=== PATIENT | male | born 1980 | race Hispanic/Latino ===

== ENCOUNTER 2018-06-14 07:57 | Emergency (ER) | payer BC, OTHER ==
--- NOTE | 2018-06-14 08:57 | EDPHYS ---
Physician Documentation [facility] Name: Stanton Appiah Jr Age: 37 yrs Sex: Male : 1980 Arrival Date: 06/14/2018 Time: 08:00 Bed DIS4 Private MD: ED Physician Ricky Hanson HPI: 06/14 08:55 This 37 yrs old Male presents to ER via Ambulatory with complaints of Flu kb Symptoms. 08:55 The patient or guardian reports cough, that is intermittent, described as mild, with no kb sputum, flu symptoms, low-grade fever, myalgias. Onset: The symptoms/episode began/occurred yesterday. Severity of symptoms: At their worst the symptoms were mild, moderate, in the emergency department the symptoms are unchanged. Modifying factors: The symptoms are alleviated by nothing, the symptoms are aggravated by nothing. Associated signs and symptoms: Pertinent positives: rhinorrhea, sore throat, Pertinent negatives: chest pain, diarrhea, ear ache, fever, nausea, vomiting. The patient has not experienced similar symptoms in the past. The patient has not recently seen a physician. Historical: - Allergies: 08:05 No Known Allergies; rb1 - Home Meds: 08:05 None [Active]; rb1 - PMHx: 08:05 None; rb1 - PSHx: 08:05 None; rb1 - Immunization history:: Adult Immunizations up to date. - Ebola Screening: : Patient negative for fever greater than or equal to 101.5 degrees Fahrenheit, and additional compatible Ebola Virus Disease symptoms. - Social history:: Smoking status: Patient uses tobacco products, denies chronic smoking, but will smoke occasionally. ROS: 08:54 Neck: Negative for injury, pain, and swelling, Cardiovascular: Negative for chest pain, kb palpitations, and edema, Abdomen/GI: Negative for abdominal pain, nausea, vomiting, diarrhea, and constipation, Back: Negative for injury and pain, MS/Extremity: Negative for injury and deformity, Skin: Negative for injury, rash, and discoloration, Neuro: Negative for headache, weakness, numbness, tingling, and seizure. 08:54 Constitutional: Positive for body aches, chills, fatigue, malaise, Negative for fever, poor PO intake, weight loss. 08:54 ENT: Positive for rhinorrhea, sore throat. 08:54 Respiratory: Positive for cough, Negative for dyspnea on exertion, hemoptysis, orthopnea, pleurisy, shortness of breath, sputum production, wheezing. Exam: 08:54 Constitutional: This is a well developed, well nourished patient who is awake, alert, kb and in no acute distress. Head/Face: Normocephalic, atraumatic. ENT: Nares patent. No nasal discharge, no septal abnormalities noted. Tympanic membranes are normal and external auditory canals are clear. Oropharynx with no redness, swelling, or masses, exudates, or evidence of obstruction, uvula midline. Mucous membranes moist. Neck: Trachea midline, no thyromegaly or masses palpated, and no cervical lymphadenopathy. Supple, full range of motion without nuchal rigidity, or vertebral point tenderness. No Meningismus. Chest/axilla: Normal chest wall appearance and motion. Nontender with no deformity. No lesions are appreciated. Cardiovascular: Regular rate and rhythm with a normal S1 and S2. No gallops, murmurs, or rubs. Normal PMI, no JVD. No pulse deficits. Respiratory: Lungs have equal breath sounds bilaterally, clear to auscultation and percussion. No rales, rhonchi or wheezes noted. No increased work of breathing, no retractions or nasal flaring. Abdomen/GI: Soft, non-tender, with normal bowel sounds. No distension or tympany. No guarding or rebound. No evidence of tenderness throughout. Skin: Warm, dry with normal turgor. Normal color with no rashes, no lesions, and no evidence of cellulitis. MS/ Extremity: Pulses equal, no cyanosis. Neurovascular intact. Full, normal range of motion. Neuro: Awake and alert, GCS 15, oriented to person, place, time, and situation. Cranial nerves II-XII grossly intact. Motor strength 5/5 in all extremities. Sensory grossly intact. Cerebellar exam normal. Normal gait. Vital Signs: 08:05 BP 159 / 101; Pulse 83; Resp 17; Temp 98.1(O); Pulse Ox 97% on R/A; Weight 74.84 kg rb1 (R); Height 5 ft. 8 in. (172.72 cm) (R); Pain 0/10; 09:00 BP 157 / 93; Pulse 84; Resp 18; Pulse Ox 99% on R/A; rb1 08:05 Body Mass Index 25.09 (74.84 kg, 172.72 cm) rb1 MDM: 08:09 Patient medically screened. kb 08:54 Data reviewed: vital signs, nurses notes. Data interpreted: Pulse oximetry: on room air kb is 97 %. Interpretation: normal. Counseling: I had a detailed discussion with the patient and/or guardian regarding: the historical points, exam findings, and any diagnostic results supporting the discharge/admit diagnosis, lab results, the need for outpatient follow up, a family practitioner, to return to the emergency department if symptoms worsen or persist or if there are any questions or concerns that arise at home. 06/14 08:10 Order name: Flu; Complete Time: 08:52 kb 06/14 08:10 Order name: Strep; Complete Time: 08:52 kb 06/14 08:51 Order name: Throat Culture EDMS Administered Medications: No medications were administered Disposition: 10:31 Co-signature as Attending Physician, Ricky Hanson MD I agree with the assessment and kdr plan of care. Disposition: 06/14/18 08:56 Discharged to Home. Impression: Acute upper respiratory infection, unspecified. - Condition is Stable. - Discharge Instructions: Upper Respiratory Infection, Adult, [id number], Viral Respiratory Infection, [id number]. - Medication Reconciliation Form, Thank You Letter, Antibiotic Education, Prescription Opioid Use form. - Follow up: Emergency Department; When: As needed; Reason: Worsening of condition. Follow up: Private Physician; When: 2 - 3 days; Reason: Recheck today's complaints, Continuance of care, Re-evaluation by your physician. Signatures: Dispatcher [employer] EDMS Awa Hardin, AIMEE-C AIMEE-Kriss Andersen, SUKHDEV RN dm5 Ricky Hanson MD MD [facility] Michelle Richard, RN RN rb1 Corrections: (The following items were deleted from the chart) 09:09 08:56 06/14/2018 08:56 Discharged to Home. Impression: Acute upper respiratory dm5 infection, unspecified. Condition is Stable. Forms are Medication Reconciliation Form, Thank You Letter, Antibiotic Education, Prescription Opioid Use. Follow up: Emergency Department; When: As needed; Reason: Worsening of condition. Follow up: Private Physician; When: 2 - 3 days; Reason: Recheck today's complaints, Continuance of care, Re-evaluation by your physician. kb
--- NOTE | 2018-06-14 08:57 | ER ---
Nurse's Notes [facility] Name: Stanton Appiah Jr Age: 37 yrs Sex: Male : 1980 Arrival Date: 06/14/2018 Time: 08:00 Bed DIS4 Private MD: Diagnosis: Acute upper respiratory infection, unspecified Presentation: 06/14 08:05 Presenting complaint: Patient states: Reports cough, headache, congestion, and fever x rb1 one day. Transition of care: patient was not received from another setting of care. Onset of symptoms was June 13, 2018. Risk Assessment: Do you want to hurt yourself or someone else? Patient reports no desire to harm self or others. Initial Sepsis Screen: Does the patient meet any 2 criteria? No. Patient's initial sepsis screen is negative. Does the patient have a suspected source of infection? No. Patient's initial sepsis screen is negative. Care prior to arrival: None. 08:05 Method Of Arrival: Ambulatory rb1 08:05 Acuity: CONNIE 3 rb1 Triage Assessment: 08:05 General: Appears in no apparent distress. comfortable, Behavior is calm, cooperative. rb1 Pain: Denies pain. Neuro: Level of Consciousness is awake, alert, obeys commands, Oriented to person, place, time, situation. Cardiovascular: Capillary refill < 3 seconds is brisk in bilateral fingers. Respiratory: Airway is patent Respiratory effort is even, unlabored, Respiratory pattern is regular, symmetrical. GI: No signs and/or symptoms were reported involving the gastrointestinal system. : No signs and/or symptoms were reported regarding the genitourinary system. Derm: Skin is pink, warm \T\ dry. Historical: - Allergies: 08:05 No Known Allergies; rb1 - Home Meds: 08:05 None [Active]; rb1 - PMHx: 08:05 None; rb1 - PSHx: 08:05 None; rb1 - Immunization history:: Adult Immunizations up to date. - Ebola Screening: : Patient negative for fever greater than or equal to 101.5 degrees Fahrenheit, and additional compatible Ebola Virus Disease symptoms. - Social history:: Smoking status: Patient uses tobacco products, denies chronic smoking, but will smoke occasionally. Screenin:05 Abuse screen: Denies threats or abuse. Nutritional screening: No deficits noted. rb1 Tuberculosis screening: No symptoms or risk factors identified. Fall Risk None identified. Assessment: 08:05 General: See triage assesssment. rb1 09:00 Reassessment: Patient appears in no apparent distress at this time. No changes from rb1 previously documented assessment. Vital Signs: 08:05 BP 159 / 101; Pulse 83; Resp 17; Temp 98.1(O); Pulse Ox 97% on R/A; Weight 74.84 kg rb1 (R); Height 5 ft. 8 in. (172.72 cm) (R); Pain 0/10; 09:00 BP 157 / 93; Pulse 84; Resp 18; Pulse Ox 99% on R/A; rb1 08:05 Body Mass Index 25.09 (74.84 kg, 172.72 cm) [facility] ED Course: 08:00 Patient arrived in ED. as 08:03 Awa Hardin FNP-C is PHCP. kb 08:03 Ricky Hanson MD is Attending Physician. kb 08:05 Arm band placed on right wrist. rb1 08:05 Patient has correct armband on for positive identification. Bed in low position. Call rb1 light in reach. Side rails up X 1. Pulse ox on. NIBP on. 08:32 Michelle Richard, RN is Primary Nurse. rb1 08:32 Strep Sent. rb1 08:32 Flu Sent. rb1 08:34 Triage completed. rb1 09:08 Patient did not have IV access during this emergency room visit. rb1 09:08 No provider procedures requiring assistance completed. rb1 Administered Medications: No medications were administered Outcome: 08:56 Discharge ordered by . kb 09:08 Discharged to home ambulatory. dm5 09:08 Condition: good 09:08 Discharge instructions given to patient, family, Instructed on discharge instructions, follow up and referral plans. medication usage. 09:09 Patient left the ED. dm5 Signatures: Awa Hardin FNP-C FNP-Ckb Markwardt, Deana, RN RN Sandrita Chavarria Rebecca, RN RN [facility]
== END 2018-06-14 09:09 | disposition home or self-care (01) ==
LOC: ER 07:57
DX: J06.9 Acute upper respiratory infection, unspecified (principal); Z72.0 Tobacco use
CPT/HCPCS: 87070; 87081; 87804; 99283

== ENCOUNTER 2019-04-10 09:36 | Emergency (ER) | payer BC ==
[2019-04-10] MEDS ORDERED: HYDROCODONE/APAP 10/325 TAB ONE (10:25)
[2019-04-10] MEDS ORDERED: LIDOCAINE 1% MPF 30 ML VIAL ONE (10:25)
--- NOTE | 2019-04-10 11:18 | ER ---
Nurse's Notes [facility] Name: Stanton Appiah Jr Age: 38 yrs Sex: Male : 1980 Arrival Date: 04/10/2019 Time: 09:40 Bed 19 Private MD: Yves Moeller H Diagnosis: Cutaneous abscess of left upper limb Presentation: 04/10 09:46 Presenting complaint: Patient states: "I thought I had a spider bite on Monday, been em putting ointment and trying to keep it clean," redness and swelling noted to left forearm, denies fever. Transition of care: patient was not received from another setting of care. Onset of symptoms was April 05, 2019. Risk Assessment: Do you want to hurt yourself or someone else? Patient reports no desire to harm self or others. Initial Sepsis Screen: Does the patient meet any 2 criteria? HR > 90 bpm. No. Patient's initial sepsis screen is negative. Does the patient have a suspected source of infection? Yes: Skin breakdown/wound. Care prior to arrival: None. 09:46 Method Of Arrival: Ambulatory em 09:52 Acuity: CONNIE 3 iw Historical: - Allergies: 09:48 No Known Allergies; em - Home Meds: 09:48 None [Active]; em - PMHx: 09:48 None; em - PSHx: 09:48 None; em - Immunization history:: Adult Immunizations up to date. - Social history:: Smoking status: Patient/guardian denies using tobacco. - Ebola Screening: : Patient negative for fever greater than or equal to 101.5 degrees Fahrenheit, and additional compatible Ebola Virus Disease symptoms Patient denies exposure to infectious person Patient denies travel to an Ebola-affected area in the 21 days before illness onset No symptoms or risks identified at this time. Screenin:48 Abuse screen: Denies threats or abuse. Nutritional screening: No deficits noted. em Tuberculosis screening: No symptoms or risk factors identified. Fall Risk None identified. Assessment: 09:48 General: Appears in no apparent distress. uncomfortable, Behavior is calm, cooperative, em Denies fever. Pain: Complains of pain in dorsal aspect of left forearm Pain currently is 10 out of 10 on a pain scale. Neuro: Level of Consciousness is awake, alert, obeys commands, Oriented to person, place, time, situation, Appropriate for age. Cardiovascular: Capillary refill < 3 seconds Patient's skin is warm and dry. Respiratory: Airway is patent Respiratory effort is even, unlabored, Respiratory pattern is regular, symmetrical. Derm: Skin is intact, is healthy with good turgor, Skin is pink, warm \\T\\ dry. Wound noted dorsal aspect of left forearm Wound is abscess noted to left forearm, swelling and redness noted. Musculoskeletal: Capillary refill < 3 seconds, Range of motion: intact in all extremities. Vital Signs: 09:48 BP 171 / 113; Pulse 91; Resp 18; Temp 99.5; Pulse Ox 100% on R/A; Weight 74.84 kg; em Height 5 ft. 8 in. (172.72 cm); Pain 10/10; 11:21 BP 167 / 104; Pulse 82; Resp 18; Pulse Ox 99% on R/A; Pain 7/10; em 09:48 Body Mass Index 25.09 (74.84 kg, 172.72 cm) em ED Course: 09:40 Patient arrived in ED. mr 09:40 Yves Moeller DO is Private Physician. mr 09:42 Osman Johnson LVN is Primary Nurse. em 09:43 Bab[facility] River[facility]C [facility] la1 09:43 Ricky Hanson MD is Attending Physician. la1 09:48 Arm band placed on. em 09:48 Patient has correct armband on for positive identification. Placed in gown. Bed in low em position. Call light in reach. Adult w/ patient. Pulse ox on. NIBP on. 09:52 Triage completed. iw 11:10 Assist provider with I \\T\\ D: of an abscess on left forearm Set up I\\T\\D tray. Performed by em Babak CARRANZA Culture sent to lab. Wound packed. iodoform gauze, Dressing with 4X4s, tape Patient tolerated well. 11:31 Patient did not have IV access during this emergency room visit. em Administered Medications: 10:28 Drug: [place] 10 mg-325 mg 1 tabs Route: PO; em 11:22 Follow up: Response: No adverse reaction; Marked relief of symptoms; RASS: Alert and em Calm (0) 10:55 Drug: Lidocaine (1 %) 20 ml Volume: 20 ml; Route: Infiltration; em 11:00 Follow up: Response: No adverse reaction; Pain is decreased em 11:28 Drug: Bactrim (160 mg-800 mg (DS) 1 tablet Route: PO; em 11:29 Follow up: Response: Medication administered at discharge. em 11:28 Drug: Doxycycline 100 mg Route: PO; em 11:29 Follow up: Response: Medication administered at discharge. em Outcome: 11:17 Discharge ordered by . la1 11:30 Discharged to home ambulatory. em 11:30 Condition: good 11:30 Discharge instructions given to patient, family, Instructed on discharge instructions, follow up and referral plans. Demonstrated understanding of instructions, follow-up care, medications, Prescriptions given X 2. 11:31 Patient left the ED. em Addendum: 04/13/2019 07:25 Addendum: Culture Results: Positive wound culture. No further action required. Bacteria e b sensitive to prescribed antibiotic. Signatures: Kiera Vega Edgar, SUMMER CHILD CAREGIVER SUMMER CHILD CAREGIVER em Quin Sims RN RN iw Attema, Lee, SCHOOL OCCUPATIONAL THERAPIST-C SCHOOL OCCUPATIONAL THERAPIST-[facility] Camilla Ramon
--- NOTE | 2019-04-10 11:19 | EDPHYS ---
Physician Documentation [facility] Name: Stanton Appiah Jr Age: 38 yrs Sex: Male : 1980 Arrival Date: 04/10/2019 Time: 09:40 Bed 19 Private MD: Yves Moeller H ED Physician Ricky Hanson HPI: 04/10 10:27 This 38 yrs old Male presents to ER via Ambulatory with complaints of Abscess. la1 10:27 The patient presents with an abscess of the dorsal aspect of left forearm. Description: la1 The affected area is moderate sized, localized, erythematous, fluctuant, pointed, swollen, warm. Onset: The symptoms/episode began/occurred 5 day(s) ago. Associated signs and symptoms: Pertinent negatives: fever, nausea, shortness of breath. Severity of symptoms: At their worst the symptoms were mild. The patient has experienced similar episodes in the past. pt with what he thought was a bug bite about 4-5 days ago that has since gotten larger and more tender. Reports he has had multiple similar episodes in the past and has not ever required IV abx or admission. Historical: - Allergies: 09:48 No Known Allergies; em - Home Meds: 09:48 None [Active]; em - PMHx: 09:48 None; em - PSHx: 09:48 None; em - Immunization history:: Adult Immunizations up to date. - Social history:: Smoking status: Patient/guardian denies using tobacco. - Ebola Screening: : Patient negative for fever greater than or equal to 101.5 degrees Fahrenheit, and additional compatible Ebola Virus Disease symptoms Patient denies exposure to infectious person Patient denies travel to an Ebola-affected area in the 21 days before illness onset No symptoms or risks identified at this time. ROS: 10:30 Constitutional: Negative for fever, chills, and weight loss, Eyes: Negative for injury, la1 pain, redness, and discharge, ENT: Negative for injury, pain, and discharge, Neck: Negative for injury, pain, and swelling, Cardiovascular: Negative for chest pain, palpitations, and edema, Respiratory: Negative for shortness of breath, cough, wheezing, and pleuritic chest pain, Abdomen/GI: Negative for abdominal pain, nausea, vomiting, diarrhea, and constipation, Back: Negative for injury and pain, MS/Extremity: Negative for injury and deformity. 10:30 Skin: Positive for abscess, erythema, of the dorsal aspect of left forearm. Exam: 10:31 Constitutional: This is a well developed, well nourished patient who is awake, alert, la1 and in no acute distress. Head/Face: Normocephalic, atraumatic. Eyes: Pupils equal round and reactive to light, extra-ocular motions intact. . Periorbital areas with no swelling, redness, or edema. Chest/axilla: Normal chest wall appearance and motion. Nontender with no deformity. No lesions are appreciated. MS/ Extremity: Pulses equal, no cyanosis. Neurovascular intact. Full, normal range of motion. 10:31 Skin: Appearance: normal except for affected area, abscess, that is moderate sized, of the dorsal aspect of left forearm, with fluctuance, with induration, with surrounding cellulitis, that is mild. Vital Signs: 09:48 BP 171 / 113; Pulse 91; Resp 18; Temp 99.5; Pulse Ox 100% on R/A; Weight 74.84 kg; em Height 5 ft. 8 in. (172.72 cm); Pain 10/10; 11:21 BP 167 / 104; Pulse 82; Resp 18; Pulse Ox 99% on R/A; Pain 7/10; em 09:48 Body Mass Index 25.09 (74.84 kg, 172.72 cm) em Procedures: 11:13 I \T\ D: Incision and drainage was performed for an abscess of the right dorsal aspect of la1 left forearm Prepped with Betadine, Anesthetized with 6 ml's 1% Lidocaine. Incised with #11 blade. Drained moderate amount purulent fluid. bloody fluid. Packed with iodoform gauze, the patient tolerated the procedure well, culture sent. MDM: 10:05 Patient medically screened. la1 11:14 Data reviewed: vital signs, nurses notes, and as a result, I will discharge patient. la1 Data interpreted: Pulse oximetry: on room air is 100 %. Interpretation: normal. Counseling: I had a detailed discussion with the patient and/or guardian regarding: the historical points, exam findings, and any diagnostic results supporting the discharge/admit diagnosis, the need for outpatient follow up, a family practitioner, to return to the emergency department if symptoms worsen or persist or if there are any questions or concerns that arise at home. ED course: Discussed with patient the fact that this abscess with surrounding cellulitis is something that is almost bad enough to require hospitalization with IV abx, offered to perform labs and call hospitalist, admit pt. Pt declined states he would like to try the I \T\ D with oral abx and return if his symptoms do not resolve or worsen. Pt has good FU and was given strict return precautions. At this time pt is afebrile, not tachycardic, feeling well, tolerating PO. . 04/10 10:09 Order name: Wound Culture la1 04/10 10:09 Order name: Dressing - Wound; Complete Time: 11: la1 04/10 10:09 Order name: Gloves, Sterile; Complete Time: 10:12 la1 04/10 10:09 Order name: I\T\D Setup; Complete Time: 10:12 la1 04/10 10:09 Order name: Scalpel; Complete Time: 10:12 la1 Administered Medications: 10:28 Drug: [place] 10 mg-325 mg 1 tabs Route: PO; em 11:22 Follow up: Response: No adverse reaction; Marked relief of symptoms; RASS: Alert and em Calm (0) 10:55 Drug: Lidocaine (1 %) 20 ml Volume: 20 ml; Route: Infiltration; em 11:00 Follow up: Response: No adverse reaction; Pain is decreased em 11:28 Drug: Bactrim (160 mg-800 mg (DS) 1 tablet Route: PO; em 11:29 Follow up: Response: Medication administered at discharge. em 11:28 Drug: Doxycycline 100 mg Route: PO; em 11:29 Follow up: Response: Medication administered at discharge. em Disposition: 13:02 Co-signature as Attending Physician, Ricky Hanson MD I agree with the assessment and kdr plan of care. Disposition: 04/10/19 11:17 Discharged to Home. Impression: Cutaneous abscess of left upper limb. - Condition is Stable. - Discharge Instructions: Skin Abscess, Incision and Drainage, Wound Packing, Incision and Drainage, Care After. - Prescriptions for Doxycycline Hyclate 100 mg Oral Tablet - take 1 tablet by ORAL route every 12 hours for 7 days; 14 tablet. Bactrim DS 800- 160 mg Oral Tablet - take 1 tablet by ORAL route every 12 hours for 7 days; 14 tablet. - Medication Reconciliation Form, Thank You Letter, Antibiotic Education form. - Follow up: Private Physician; When: 2 - 3 days; Reason: Recheck today's complaints, Re-evaluation by your physician. - Problem is new. - Symptoms have improved. Signatures: Dispatcher [employer] EDRicky Saez MD MD kdr Munoz, Edgar, HAND SCRAPER HAND SCRAPER em Babak Rivero, STERILE TECHNICIAN-C STERILE TECHNICIAN-Cla1 Corrections: (The following items were deleted from the chart) 11:31 11:17 04/10/2019 11:17 Discharged to Home. Impression: Cutaneous abscess of left upper em limb. Condition is Stable. Forms are Medication Reconciliation Form, Thank You Letter, Antibiotic Education, Prescription Opioid Use. Follow up: Private Physician; When: 2 - 3 days; Reason: Recheck today's complaints, Re-evaluation by your physician. Problem is new. Symptoms have improved. la1
[2019-04-10] MEDS ORDERED: DOXYCYCLINE 100 MG CAP PO ONE (11:29)
[2019-04-10] MEDS ORDERED: SMZ./TMP. 800/160 MG TABLET ONE (11:29)
[2019-04-10 11:37] VITALS: TEMP 99.5
[2019-04-10 11:38] VITALS: BP 167/104; O2SAT 99
== END 2019-04-10 11:31 | disposition home or self-care (01) ==
LOC: ER 09:36
PROC: 0J9H0ZZ Drainage of Left Lower Arm Subcutaneous Tissue and Fascia, Open Approach (ICD-10-PCS; principal; 2019-04-10)
DX: L02.414 Cutaneous abscess of left upper limb (principal)
CPT/HCPCS: 87070; 87077; 87186; 87205; 99284

== ENCOUNTER 2019-04-12 09:36 | Emergency (ER) | payer BC ==
--- NOTE | 2019-04-12 10:03 | EDPHYS ---
Physician Documentation [facility] Name: Stanton Appiah Jr Age: 38 yrs Sex: Male : 1980 Arrival Date: 04/12/2019 Time: 09:37 Bed 15 Private MD: ED Physician Ricky Hanson HPI: 04/12 10:07 This 38 yrs old Male presents to ER via Ambulatory with complaints of Wound kdr Check. 10:07 Patient presents to ED for recheck of: abscess, cellulitis. The affected area is on the kdr palmar aspect of left forearm. Previous treatment: The patient was initially treated 2 day(s) ago, the care was rendered at [facility]. Progress: The patient reports The patient states that the redness is better and his hand and arm swelling are decreasing. The patient has not experienced similar symptoms in the past. The patient has been recently seen at the [facility] Emergency Department. Historical: - Allergies: 09:50 No Known Allergies; hb - Home Meds: 09:50 None [Active]; hb - PMHx: 09:50 None; hb - PSHx: 09:50 None; hb - Immunization history:: Adult Immunizations up to date. - Social history:: Smoking status: Patient/guardian denies using tobacco. - Ebola Screening: : No symptoms or risks identified at this time. ROS: 10:07 Constitutional: Negative for fever, chills, and weight loss, Eyes: Negative for injury, kdr pain, redness, and discharge, Neck: Negative for injury, pain, and swelling, Cardiovascular: Negative for chest pain, palpitations, and edema. 10:07 Skin: Positive for abscess, cellulitis, erythema, of the palmar aspect of left forearm. Exam: 10:07 Constitutional: This is a well developed, well nourished patient who is awake, alert, kdr and in no acute distress. Head/Face: Normocephalic, atraumatic. Eyes: Pupils equal round and reactive to light, extra-ocular motions intact. Lids and lashes normal. Conjunctiva and sclera are non-icteric and not injected. Cornea within normal limits. Periorbital areas with no swelling, redness, or edema. 10:07 Skin: abscess, that is small, of the palmar aspect of left forearm, This is a wound that has packing in place which is easily removed. Vital Signs: 09:50 BP 129 / 68; Pulse 64; Resp 16; Temp 97.8; Pulse Ox 100% on R/A; Weight 72.57 kg; hb Height 5 ft. 8 in. (172.72 cm); Pain 3/10; 09:50 Body Mass Index 24.33 (72.57 kg, 172.72 cm) hb Procedures: 10:07 I \T\ D: Packed with sterile gauze, Dressing: non-Adherent dressing, the patient kdr tolerated the procedure well, Repacked wound without problem - the patient tolerated well. MDM: 10:02 Patient medically screened. kdr 10:07 Data reviewed: vital signs, nurses notes. Counseling: I had a detailed discussion with kdr the patient and/or guardian regarding: the historical points, exam findings, and any diagnostic results supporting the discharge/admit diagnosis, the need for outpatient follow up. Administered Medications: No medications were administered Disposition: 04/12/19 10:03 Discharged to Home. Impression: Wound check, Cellulitis of left upper limb - improving. - Condition is Stable. - Discharge Instructions: Cellulitis, Adult, [id number], Antibiotic Medicine, Adult. - Medication Reconciliation Form, Thank You Letter form. - Follow up: Private Physician; When: 2 - 3 days; Reason: If symptoms return, Further diagnostic work-up, Recheck today's complaints, Continuance of care, Re-evaluation by your physician. - Problem is an ongoing problem. - Symptoms have improved. - Notes: Change the dressing and repack daily. Continue with antibitic until completed. Signatures: Yoko Gonsales, RN RN Ricky Hanson MD MD [facility] Kiley Watson RN RN Corrections: (The following items were deleted from the chart) 10:21 10:03 04/12/2019 10:03 Discharged to Home. Impression: Wound check; Cellulitis of left ch upper limb - improving. Condition is Stable. Forms are Medication Reconciliation Form, Thank You Letter, Antibiotic Education, Prescription Opioid Use. Follow up: Private Physician; When: 2 - 3 days; Reason: If symptoms return, Further diagnostic work-up, Recheck today's complaints, Continuance of care, Re-evaluation by your physician. Problem is an ongoing problem. Symptoms have improved. kdr
--- NOTE | 2019-04-12 10:03 | ER ---
Nurse's Notes [facility] Name: Stanton Appiah Jr Age: 38 yrs Sex: Male : 1980 Arrival Date: 04/12/2019 Time: 09:37 Bed 15 Private MD: Diagnosis: Wound check;Cellulitis of left upper limb-improving Presentation: 04/12 09:48 Presenting complaint: Wound on left forearm, here for dressing change and wound check. hb Transition of care: patient was not received from another setting of care. Onset of symptoms was April 12, 2019. Risk Assessment: Do you want to hurt yourself or someone else? Patient reports no desire to harm self or others. Care prior to arrival: None. 09:48 Method Of Arrival: Ambulatory hb 09:48 Acuity: CONNIE 4 hb Historical: - Allergies: 09:50 No Known Allergies; hb - Home Meds: 09:50 None [Active]; hb - PMHx: 09:50 None; hb - PSHx: 09:50 None; hb - Immunization history:: Adult Immunizations up to date. - Social history:: Smoking status: Patient/guardian denies using tobacco. - Ebola Screening: : No symptoms or risks identified at this time. Screenin:00 Abuse screen: Denies threats or abuse. Denies injuries from another. Nutritional ch screening: No deficits noted. Tuberculosis screening: No symptoms or risk factors identified. Fall Risk None identified. Assessment: 10:00 Reassessment: Patient appears in no apparent distress at this time. Patient and/or ch family updated on plan of care and expected duration. Pain level reassessed. Patient is alert, oriented x 3, equal unlabored respirations, skin warm/dry/pink. 10:00 Pain: Denies pain. Neuro: No deficits noted. Respiratory: No deficits noted. Vital Signs: 09:50 BP 129 / 68; Pulse 64; Resp 16; Temp 97.8; Pulse Ox 100% on R/A; Weight 72.57 kg; hb Height 5 ft. 8 in. (172.72 cm); Pain 3/10; 09:50 Body Mass Index 24.33 (72.57 kg, 172.72 cm) ED Course: 09:37 Patient arrived in ED. as 09:40 Ricky Hanson MD is Attending Physician. kdr 09:49 Triage completed. hb 09:50 Arm band placed on. hb 10:00 No apparent distress. ch 10:00 Patient has correct armband on for positive identification. Bed in low position. ch 10:00 No provider procedures requiring assistance completed. Patient did not have IV access ch during this emergency room visit. 10:15 Yoko Gonsales, RN is Primary Nurse. ch Administered Medications: No medications were administered Outcome: 10:03 Discharge ordered by . kdr 10:15 Discharged to home ambulatory. ch 10:15 Condition: stable 10:15 Discharge instructions given to patient, Instructed on discharge instructions, follow up and referral plans. wound care, Demonstrated understanding of instructions, follow-up care, wound care. 10:21 Patient left the ED. Signatures: Yoko Gonsales, SUKHDEV RN Ricky Hanson MD MD [facility] Sandrita Miranda as Kiley Watson RN RN hb
[2019-04-12 10:25] VITALS: BP 129/68; TEMP 97.8; O2SAT 100
== END 2019-04-12 10:21 | disposition home or self-care (01) ==
LOC: ER 09:36
DX: Z48.01 Encounter for change or removal of surgical wound dressing (principal)
CPT/HCPCS: 99281

== ENCOUNTER 2022-04-16 08:37 | Emergency (ER) | payer BC ==
--- OUTSIDE RECORDS SUMMARY | 2022-04-16 08:40 | XMS REPORT | Continuity of Care Document ---
:1980 Author Organization [facility] t Address [address] [place] [address] Care Team Providers Name Role Phone PCP, PATIENT DOES NOT HAVE A Primary Care Physician Unavaila ble VIRY ALEJANDRE Attending Clinician Unavailable Viry Mcqueen Attending Clinician VIRY ALEJANDRE Admitting Clinician Unavailable Payers Payer Name Policy Type Policy Number Effective Date Expiration Date S [facility] [id number] 2017 00:00:00 Problems Condition Condition Condition Status Onset Resolution Last Treating Co mments Source Name Details Category Date Date Treatment Clinician Date No known No known Disease Unive rs active active ity of problems problems [facility] Allergies, Adverse Reactions, Alerts Allergy Allergy Status Severity Reaction(s) Onset Inactive Treating Comm ents Source Name Type Date Date Clinician NO KNOWN Drug Active [facility] ALLERGIE Class [facility] of [facility] [place] [facility] Social History Social Habit Start Date Stop Date Quantity Comments Source Sex Assigned At [birth year] [facility] y of [place] 00:00:00 00:00:00 Medical Branch Smoking Status Start Date Stop Date Source Tobacco smoking consumption [facility] Branch Medications Ordered Filled Start Stop Current Ordering Indication Dosage Frequency Signature Comments Components Source Medication Medication Date Date Medication? Clinician (SIG) Name Name HYDROcodone 2021- No 1{tbl} 1 tablet, Univers -acetaminop 8-23 08-23 Oral, ity of [place] (NORCO) 14:30: 13:37 [place] 10[place] 00 :00 dose, On Medica l tablet 1 Tue Branch tablet 12/07/21 at 0930, Routine ciprofloxac 2021-0 Yes [id number] 250mg Take 1 Univers in HCl 250 8-23 tablet by [place]y of [place] tablet [place]:00[place] 00 the Medical morning Branch and 1 tablet in the evening. tamsulosin 0 Yes [id number] .4mg Take 1 U nivers 0.4 mg 24 8-23 capsule by ity of hr capsule 00:00: mouth at [place] as 00 bedtime. Medical Branch ondansetron 0 Yes [id number] 4mg Take 1 Univers 4 mg 8-23 tablet by ity of disintegrat 00:00: mouth [place] ing tablet 00 every 8 Medica l (eight) Branch hours as needed for Nausea and Vomiting (N/V). acetaminoph Yes [id number] 1{tbl} Take 1 Un dre en-codeine 8-23 tablet by ity of 300-30 mg 00:00: mouth [place] tablet 00 every 4 Medical (four) Branch hours as needed for Pain (scale 4-6). Indication s: acute pain Vital Signs Vital Name Observation Time Observation Value Comments Source Systolic blood 2021-12-07 13:13:00 188 mm[Hg] [facility] Diastolic blood 2021-12-07 13:13:00 113 mm[Hg] [facility] Heart rate 2021-12-07 13:13:00 78 /min [facility] Body temperature 2021-12-07 13:13:00 36.61 [facility] Respiratory rate 2021-12-07 13:13:00 18 /min [facility] Body height 2021-12-07 13:13:00 172.7 cm [facility] Body weight 2021-12-07 13:13:00 72.576 kg [facility] BMI 2021-12-07 13:13:00 24.33 kg/m2 [facility] Oxygen saturation in 2021-12-07 13:13:00 98 /min [facility] blood by [facility] Pulse oximetry Branch Procedures Procedure Date / Time Performed Performing Clinician Niraj clarke CT ABDOMEN PELVIS WO 2021-12-07 13:44:51 Viry [facility]re [facility] 2021-12-07 13:15:00 Bennett Beavers Quinter o f [facility] NOTICE OF PRIVACY 2021-12-07 13:10:48 Doctor Unassigned, No Univ [facility] PRACTICES Name Medical Branch Encounters Start End Encounter Admission Attending Care Care Encounter Source Date/Time Date/Time Type Type Clinicians Facility Department ID 2021-12-07 2021-12-07 Emergency X KAMALA ALEJANDRE ERT [id number] Univers 08:33:00 09:56:00 VIRY hong [facility] 2021-12-07 2021-12-07 Emergency KAMALA Alejandre [id number] Univers 08:33:00 09:56:00 Viry BONILLA [id number] i ty [facility] [id number] [facility] [id number] [facility] 084 Branch Results This patient has no known results.
[2022-04-16] MEDS ORDERED: CEPHALEXIN 250 MG CAP ONE (08:50)
[2022-04-16] MEDS ORDERED: SMZ./TMP. 800/160 MG TABLET ONE (08:50)
[2022-04-16] MEDS ORDERED: LIDOCAINE 1% MPF 5 ML VIAL ONE (08:51)
--- NOTE | 2022-04-16 08:59 | EDPHYS ---
Physician Documentation [facility] Name: Stanton Appiah Jr Age: 41 yrs Sex: Male : 1980 Arrival Date: 04/16/2022 Time: 08:40 Bed 14 Private MD: Yves Moeller H ED Physician Manjit Haynes HPI: 04/16 09:05 This 41 yrs old Male presents to ER via Ambulatory with complaints of Abscess. kb 09:05 The patient presents with an abscess of the medial aspect of left calf. Description: kb erythematous, swollen, warm. Onset: The symptoms/episode began/occurred 1 month(s) ago. Possible cause(s): ant bite. Associated signs and symptoms: Pertinent positives: drainage, erythema, swelling. Modifying factors: the symptoms are alleviated by nothing, the symptoms are aggravated by nothing. Severity of symptoms: At their worst the symptoms were moderate, in the emergency department the symptoms are unchanged. The patient has not experienced similar symptoms in the past. The patient has not recently seen a physician. Pt c/o abscess to medial left calf that started a month ago after being bit by ants. States he has been trying to get it to drain, is able to get a little out of it, but then it closes back up. Historical: - Allergies: 08:49 No Known Allergies; jl7 - Home Meds: 08:49 Lisinopril Oral [Active]; jl7 - PMHx: 08:49 Hypertensive disorder; jl7 - Immunization history:: Client reports receiving the 2nd dose of the Covid vaccine. - Social history:: Smoking status: Patient denies any tobacco usage or history of. ROS: 09:03 Constitutional: Negative for fever, chills, and weight loss. kb 09:03 Skin: Positive for abscess, of the medial aspect of left calf. 09:03 All other systems are negative. Exam: 09:03 Constitutional: This is a well developed, well nourished patient who is awake, alert, kb and in no acute distress. Head/Face: Normocephalic, atraumatic. ENT: Moist Mucous membranes Cardiovascular: Regular rate and rhythm with a normal S1 and S2. No gallops, murmurs, or rubs. No pulse deficits. Respiratory: Respirations even and unlabored. No increased work of breathing. Talking in full sentences Abdomen/GI: Soft, non-tender. No distention MS/ Extremity: Pulses equal, no cyanosis. Neurovascular intact. Full, normal range of motion. Neuro: Awake and alert, GCS 15, oriented to person, place, time, and situation. Moves all extremities. Normal gait. Psych: Awake, alert, with orientation to person, place and time. Behavior, mood, and affect are within normal limits. 09:03 Skin: abscess, that is small, of the medial aspect of left calf, with drainage, with fluctuance, with induration. Vital Signs: 08:46 BP 178 / 113; Pulse 84; Resp 15; Temp 98.6; Pulse Ox 99% ; Weight 74.84 kg; Height 5 jl7 ft. 8 in. (172.72 cm); Pain 10/10; 09:16 BP 157 / 100; Pulse 70; Resp 15; Pulse Ox 99% on R/A; ll1 08:46 Body Mass Index 25.09 (74.84 kg, 172.72 cm) jl7 Procedures: 09:03 I \T\ D: Incision and drainage was performed for an abscess of the left medial aspect of kb left calf Prepped with Betadine, Anesthetized with 2 ml's 1% Lidocaine. Incised with #11 blade. Drained small amount purulent fluid. Dressing: sterile 4x4 gauze, the patient tolerated the procedure well. MDM: 08:45 Patient medically screened. kb 09:05 Data reviewed: vital signs, nurses notes. Data interpreted: Pulse oximetry: on room air kb is 99 %. Interpretation: normal. Counseling: I had a detailed discussion with the patient and/or guardian regarding: the historical points, exam findings, and any diagnostic results supporting the discharge/admit diagnosis, the need for outpatient follow up, a family practitioner, to return to the emergency department if symptoms worsen or persist or if there are any questions or concerns that arise at home. 04/16 08:48 Order name: I\T\D Setup; Complete Time: 08:51 kb Administered Medications: 08:51 Drug: Bactrim (trimethoprim-sulfamethoxazole) (160 mg-800 mg (DS) 1 tablet Route: PO; ll1 09:17 Follow up: Response: No adverse reaction 1 08:51 Drug: KeFLEX (cephalexin) 500 mg Route: PO; ll1 09:17 Follow up: Response: No adverse reaction ll1 08:51 Drug: Lidocaine (1 %) 1 vials {Note: by AIMEE Curry for abscess drainage.} Volume: ll1 5 ml; Route: Infiltration; 09:17 Follow up: Response: No adverse reaction ll1 Disposition: 11:45 Co-signature as Attending Physician, Manjit Haynes MD. rn Disposition Summary: 04/16/22 08:58 Discharge Ordered Location: Home kb Condition: Stable kb Diagnosis - Cutaneous abscess of left lower limb kb Followup: kb - With: Emergency Department - When: As needed - Reason: Worsening of condition Followup: kb - With: Private Physician - When: 2 - 3 days - Reason: Recheck today's complaints, Continuance of care, Re-evaluation by your physician Discharge Instructions: - Discharge Summary Sheet kb - Incision and Drainage kb - Skin Abscess, [id number] kb Forms: - Medication Reconciliation Form kb - Thank You Letter kb - Antibiotic Education kb - Prescription Opioid Use kb Prescriptions: - Cephalexin 500 mg Oral Capsule - take 1 capsule by ORAL route every 8 hours for 10 days; 30 capsule; Refills: 0, kb Product Selection Permitted - Bactrim DS 800-160 mg Oral Tablet - take 1 tablet by ORAL route every 12 hours for 10 days; 20 tablet; Refills: 0, kb Product Selection Permitted Signatures: Awa Hardin FNP-C [employer]-Manjit Milligan MD MD rn Leal, Jahala, RN RN jl7 Daren Maciel RN RN ll1 Corrections: (The following items were deleted from the chart) 08:50 08:49 PMHx: None; silvana pina
--- NOTE | 2022-04-16 08:59 | ER ---
Nurse's Notes [facility] Name: Stanton Appiah Jr Age: 41 yrs Sex: Male : 1980 Arrival Date: 04/16/2022 Time: 08:40 Bed 14 Private MD: Yves Moeller H Diagnosis: Cutaneous abscess of left lower limb Presentation: 04/16 08:46 Chief complaint: Patient states: Bit by ants x1 month, abscess to left lower extremity. jl7 Coronavirus screen: At this time, the client does not indicate any symptoms associated with coronavirus-19. Ebola Screen: No symptoms or risks identified at this time. Initial Sepsis Screen: Does the patient meet any 2 criteria? No. Patient's initial sepsis screen is negative. Does the patient have a suspected source of infection? No. Patient's initial sepsis screen is negative. Risk Assessment: Do you want to hurt yourself or someone else? Patient reports no desire to harm self or others. Onset of symptoms was March 16, 2022. 08:46 Method Of Arrival: Ambulatory jl7 08:46 Acuity: CONNIE 4 jl7 Triage Assessment: 08:49 General: Appears in no apparent distress. uncomfortable, Behavior is calm, cooperative, jl7 appropriate for age. Pain: Complains of pain in left leg Pain currently is 10 out of 10 on a pain scale. Historical: - Allergies: 08:49 No Known Allergies; jl7 - Home Meds: 08:49 Lisinopril Oral [Active]; jl7 - PMHx: 08:49 Hypertensive disorder; jl7 - Immunization history:: Client reports receiving the 2nd dose of the Covid vaccine. - Social history:: Smoking status: Patient denies any tobacco usage or history of. Screenin:53 [facility] ED Fall Risk Assessment (Adult) Score/Fall Risk Level 0 - 2 = Low Risk ll1 Oriented to surroundings, Maintained a safe environment, Educated pt \T\ family on fall prevention, incl call for assistance when getting out of bed, Provided non-skid footwear, Hourly rounding (assess needs \T\ fall precautionary measures) done. Abuse screen: Denies threats or abuse. Nutritional screening: No deficits noted. Tuberculosis screening: No symptoms or risk factors identified. Assessment: 08:52 Reassessment: No changes from previously documented assessment. Patient and/or family ll1 updated on plan of care and expected duration. Pain level reassessed. Patient is alert, oriented x 3, equal unlabored respirations, skin warm/dry/pink. 09:15 Reassessment: No changes from previously documented assessment. Patient and/or family ll1 updated on plan of care and expected duration. Pain level reassessed. Patient is alert, oriented x 3, equal unlabored respirations, skin warm/dry/pink. Vital Signs: 08:46 BP 178 / 113; Pulse 84; Resp 15; Temp 98.6; Pulse Ox 99% ; Weight 74.84 kg; Height 5 jl7 ft. 8 in. (172.72 cm); Pain 10/10; 09:16 BP 157 / 100; Pulse 70; Resp 15; Pulse Ox 99% on R/A; ll1 08:46 Body Mass Index 25.09 (74.84 kg, 172.72 cm) jl7 ED Course: 08:40 Patient arrived in ED. mr 08:40 Yves Moeller DO is Private Physician. mr 08:41 A[facility] Hardin [facility]NP-C [facility]. kb 08:41 Manjit Haynes MD is Attending Physician. kb 08:46 Daren Maciel, SUKHDEV is Primary Nurse. ll1 08:49 Triage completed. jl7 08:49 Arm band placed on right wrist. jl7 08:52 Patient has correct armband on for positive identification. Bed in low position. Call ll1 light in reach. Side rails up X 1. Cardiac monitoring not applicable on this patient. 08:53 Patient did not have IV access during this emergency room visit. ll1 09:15 Wound care: to decubitus located on left leg was dressed with 4X4s, cling, Patient ll1 tolerated well. 09:16 No provider procedures requiring assistance completed. ll1 Administered Medications: 08:51 Drug: Bactrim (trimethoprim-sulfamethoxazole) (160 mg-800 mg (DS) 1 tablet Route: PO; ll1 09:17 Follow up: Response: No adverse reaction ll1 08:51 Drug: KeFLEX (cephalexin) 500 mg Route: PO; ll1 09:17 Follow up: Response: No adverse reaction ll1 08:51 Drug: Lidocaine (1 %) 1 vials {Note: by AIMEE Curry for abscess drainage.} Volume: ll1 5 ml; Route: Infiltration; 09:17 Follow up: Response: No adverse reaction ll1 Medication: 08:53 VIS not applicable for this client. ll1 Outcome: 08:58 Discharge ordered by . bishop 09:17 Discharged to home ambulatory. ll1 09:17 Condition: stable 09:17 Discharge instructions given to patient, Instructed on discharge instructions, follow up and referral plans. medication usage, wound care, Demonstrated understanding of instructions, follow-up care, medications, wound care, Prescriptions given X 2. 09:18 Patient left the ED. ll1 Signatures: Awa Hardin, AIMEE-Maria Elena YU-Fe VegaKiera mr Jimena Landers RN RN susan7 Daren Maciel RN RN 1 Corrections: (The following items were deleted from the chart) 08:50 08:49 PMHx: None; silvana pina
[2022-04-16 09:22] VITALS: TEMP 98.6; O2SAT 99
[2022-04-16 09:23] VITALS: BP 157/100
== END 2022-04-16 09:18 | disposition home or self-care (01) ==
LOC: ER 08:37
PROC: 0H9LXZZ Drainage of Left Lower Leg Skin, External Approach (ICD-10-PCS; principal; 2022-04-16)
DX: L02.416 Cutaneous abscess of left lower limb (principal); I10 Essential (primary) hypertension
CPT/HCPCS: 99283; 10060; J2001